=== PATIENT | female | born 1980 | race Caucasian/White ===

== ENCOUNTER 2020-10-07 14:33 | Outpatient (CLI) | payer OTHER | END 2020-10-07 14:34 | disposition home or self-care (01) | LOC: DTY/OP 14:33 | PROVIDERS: ATTEND Surgery | DX: E66.01 Morbid (severe) obesity due to excess calories (principal) | CPT/HCPCS: 97802 ==

== ENCOUNTER 2020-11-04 06:30 | Outpatient (CLI) | payer OTHER ==
--- NOTE | 2020-11-04 17:01 | RAD ---
EXAM: CHEST TWO VIEWS 11/04/2020 4:58 PM HISTORY: Preop evaluation COMPARISON: Prior exam dated November 12, 2019 FINDINGS: Lungs: No acute airspace consolidation. Heart: Normal in size and contour. Pulmonary Vessels: Normal. Costophrenic Angles: Clear. Pneumothorax: None. Osseous Structures: Intact. Additional Findings: None. IMPRESSION: No significant acute intrathoracic disease.
[2020-11-04 18:03] LABS: #Eosinphils 0.2 10x3/uL (0.0-0.5); #Monocytes 0.4 10x3/uL (0.0-1.1); #Neutrophils 4.6 10x3/uL (1.5-8.4); %Basophils 0.2 % (0.0-2.0); %Eosinophils 1.8 % (0.0-6.0); %Lymphocytes 44.6 % (18.0-47.0); %Monocytes 4.5 % (0.0-10.0); %Neutrophils 48.8 % (40.0-75.0); Hemoglobin 12.8 g/dL (12.0-16.0); Mean Corpuscular HGB CONC 33.4 G/DL (32.0-36.0); Mean Corpuscular Hemoglobin 29.2 PG (27.0-33.0); Mean Corpuscular Volume 87.4 fl (80.0-100.0); Mean Platelet Volume 10.2 fl (7.4-10.4); Platelet Count 275 10x3/uL (130-400); RBC Distribution Width 12.4 % (11.5-14.5); Red Blood Cell (RBC) Count 4.38 10x6/uL (3.90-5.20); White Blood Cell (WBC) Count 9.4 10x3/uL (4.5-11.0)
[2020-11-04 18:29] LABS: BHCG - Serum Negative (NEGATIVE); Pregs Control Background? CLEAR/WHITE (CLR/WHITE); Pregs Control Bar Appear? YES (CONTROL BAR)
[2020-11-04 18:36] LABS: ALT (SGPT) 40 U/L (8-55); AST (SGOT) 30 U/L (5-34); Albumin 4.7 g/dL (3.5-5.0); Alkaline Phosphatase 53 U/L (40-110); Anion Gap 16 mmol/L (10-20); BUN (Urea Nitrogen) 17 mg/dL (7.0-18.7); Bilirubin, Total 0.4 mg/dL (0.2-1.2); Calc. Creatinine Clearance 0 mL/min (70-130); Calcium 9.5 mg/dL (7.8-10.44); Carbon Dioxide 29 mmol/L (22-29); Chloride 100 mmol/L (98-107); Globulin 2.7 g/dL (2.4-3.5); Glucose 85 mg/dL (70-105); Potassium 4.4 mmol/L (3.5-5.1); Protein, Total 7.4 g/dL (6.0-8.3); Sodium 141 mmol/L (136-145)
[2020-11-04 21:21] LABS: Hemoglobin A1c 5.6 % (4.0-6.0)
[2020-11-05 03:11] LABS: SARS-CoV-2 MS2 Positive; SARS-CoV-2 N Gene Negative; SARS-CoV-2 S Gene Negative; SARS-CoV-2 by NAA Not Detected (NotDetected); SARS-CoV-2 orf1ab Negative
== END 2020-11-04 06:31 | disposition home or self-care (01) ==
LOC: LABBT 06:30
PROVIDERS: ATTEND Surgery
DX: Z01.818 Encounter for other preprocedural examination (principal); Z20.828 Contact with and (suspected) exposure to other viral communicable diseases; E66.01 Morbid (severe) obesity due to excess calories
CPT/HCPCS: 71046; 80053; 83036; 84703; 85025; 87635; 93005; 93010; U0003

== ENCOUNTER 2020-11-04 10:45 | Inpatient (IN) | payer OTHER ==
[2020-11-09] MEDS ORDERED: Rocuronium Bromide 10 MG/ML (10ML VIAL) ONE (09:51)
[2020-11-09] MEDS ORDERED: Lidocaine 1% PF 5 ML VIAL ONE (09:51)
[2020-11-09] MEDS ORDERED: Ondansetron PF 4 MG/2 ML Vial ONE (09:51)
[2020-11-09] MEDS ORDERED: ePHEDrine 50 MG/ML VIAL ONE (09:51)
[2020-11-09] MEDS ORDERED: Glycopyrrolate 0.2 MG/ML 5 ML SYRINGE ONE (09:51)
[2020-11-09] MEDS ORDERED: PROPOFOL 200 MG/20 ML VIAL ONE (09:51)
[2020-11-09] MEDS ORDERED: Ketorolac Tromethamine 30 MG/ML VIAL ONE (09:51)
[2020-11-09] MEDS ORDERED: Heparin 5,000 UNITS/ML VIAL ONE (10:23)
[2020-11-09] MEDS ORDERED: Bupivacaine PF 0.5% 30 ML VIAL ONE (11:38)
[2020-11-09] MEDS ORDERED: Lidocaine 1% w/Epinephrine 1:100K 20 ML VIAL ONE (11:38)
[2020-11-09] MEDS ORDERED: SUGAMMADEX SODIUM 200 MG/2 ML VIAL ONE (11:47)
[2020-11-09] MEDS ORDERED: Lidocaine 2% Jelly 5 ML TUBE ONE (11:47)
[2020-11-09] MEDS ORDERED: Fentanyl 100 MCG/2 ML VIAL ONE ×2 (11:47→13:14)
[2020-11-09] MEDS ORDERED: Midazolam HCl 2 mg/2 ml Vial ONE (11:47)
[2020-11-09] MEDS ORDERED: SUGAMMADEX SODIUM 500 MG/5 ML VIAL ONE (11:47)
[2020-11-09] MEDS ORDERED: Promethazine HCl 25 MG/ML VIAL SLOW IVP PRN (13:20)
[2020-11-09] MEDS ORDERED: Promethazine HCl 25 MG/ML VIAL IM PRN ×3 (13:20→13:56)
[2020-11-09] MEDS ORDERED: Ondansetron HCl/PF 4 MG/2 ML Vial IVP PRN (13:20)
[2020-11-09] MEDS ORDERED: Promethazine HCl 25 MG/ML VIAL ONE ×2 (13:34→14:04)
[2020-11-09] MEDS ORDERED: Meperidine HCl/PF 25 MG/ML VIAL SLOW IVP SCH (13:45)
[2020-11-09] MEDS ORDERED: diphenhydrAMINE 50 MG/ML VIAL IVP PRN ×2 (13:48→13:56)
[2020-11-09] MEDS ORDERED: Zolpidem Tartrate 5 MG TAB PO PRN (13:48)
[2020-11-09] MEDS ORDERED: Naloxone HCl 0.4 mg/ml Vial IV PRN (13:48)
[2020-11-09] MEDS ORDERED: diphenhydrAMINE 25 MG CAP PO PRN (13:48)
[2020-11-09] MEDS ORDERED: diphenhydrAMINE 50 MG/ML VIAL IM PRN (13:48)
[2020-11-09] MEDS ORDERED: fentaNYL Citrate/PF 2,000 MCG in Sodium Chloride 0.9% 60 ML IV PRN (13:48)
[2020-11-09] MEDS ORDERED: Meperidine HCl/PF 25 MG/ML VIAL ONE (13:52)
[2020-11-09] MEDS ORDERED: Hydrocodone-Acetamin 15 ML UDCUP PO PRN (13:56)
[2020-11-09] MEDS ORDERED: Dextrose 50% Abboject 50 ML SYRINGE SLOW IVP PRN (13:56)
[2020-11-09] MEDS ORDERED: Dextrose 5% in Water 1,000 ML IV PRN (13:56)
[2020-11-09] MEDS ORDERED: Ondansetron PF 4 MG/2 ML Vial IVP PRN (13:56)
[2020-11-09] MEDS ORDERED: hydrALAZINE 20 MG/ML VIAL SLOW IVP PRN (13:56)
[2020-11-09] MEDS ORDERED: HumaLOG 300 UNITS/3 ML VIAL SC PRN (13:56)
--- NOTE | 2020-11-09 13:59 | OP ---
DATE OF PROCEDURE: 11/09/2020 PREOPERATIVE DIAGNOSES: 1. Morbid obesity, body mass index of 36. 2. Diabetes mellitus, type 2. 3. Hypertension. 4. Hyperlipidemia. POSTOPERATIVE DIAGNOSES: 1. Morbid obesity, body mass index of 36. 2. Diabetes mellitus, type 2. 3. Hypertension. 4. Hyperlipidemia. PROCEDURE PERFORMED: Laparoscopic sleeve gastrectomy with Ethicon staple line reinforcements and 38-[place] bougie. ANESTHESIA: General. ESTIMATED BLOOD LOSS: 50 mL. COMPLICATIONS: None. FINDINGS: Normal postoperative EGD. DESCRIPTION OF PROCEDURE: The patient was taken to the operating room and laid supine on the operating room table. After general anesthetic was obtained, the arms and legs were double strapped to bariatric table. The abdomen was prepped and draped in a sterile fashion. Left subcostal 5-mm Optiview trocar placed in usual fashion. High-flow pneumoperitoneum was obtained. Left and right abdominal 12 mm ports as well as a right subcostal 5-mm port were all placed under direct visualization. A 5-mm incision was made at the xiphoid, and Briseyda was used to raise the liver off the GE junction. Short gastrics were taken down from midbody of the stomach to left kerry of diaphragm. Left kerry, posterior fundus, angle of His were completely dissected. Short gastrics were taken down to a distance of 6 cm proximal to the pylorus. A 38 bougie was brought in and its tip left in the antrum of the stomach. Multiple loads of [place] stapling device with Ethicon staple line reinforcements used to form the sleeve. The first was fired up at a distance of 6 cm proximal to the pylorus angled up towards the incisura. Care was taken to avoid being too close to the incisura. Multiple loads were then fired up along the bougie. Stomach was completely transected at the angle of His. Stomach was removed from the left abdominal incision. This fascial defect was closed using GraNee needle and Vicryl tie. A couple of bleeders on the staple line were clipped using laparoscopic clip. The bougie was removed, and an EGD scope was passed through esophagus, stomach to the level of duodenum without obstruction. There was no air leakage or bleeding along the staple line. EGD scope was used to decompress the stomach, it was pulled and removed. All port sites were infiltrated using local anesthetic. Briseyda retractor was removed under direct visualization without bleeding. Pneumoperitoneum was let down. The Vicryl was used to close the fascial defect from the left abdominal incisions. All incisions were irrigated and closed using 4-0 Monocryl and Dermabond. The patient was en route to Recovery in stable condition. All instrument counts, needle counts, and lap counts were correct. Job ID: [id number]
[2020-11-09] MEDS ORDERED: Communication Order-Pharmacy FS SCH (14:00)
[2020-11-09 21:46] VITALS: BMI 36.9
[2020-11-10] MEDS: Ondansetron PF 4 MG/2 ML Vial IVP PRN ×2 (00:18→09:04)
[2020-11-10] MEDS: Sodium Chloride 0.9% 1,000 ML IV SCH ×3 (00:19→09:45)
[2020-11-10 05:05] LABS: #Lymphocytes 3.3 thou/uL (1.20-3.40); #Monocytes 0.5 thou/uL (0.11-0.59); #Neutrophils 7.6 thou/uL (1.40-6.50); %Basophils 0.3 % (0.0-1.0); %Eosinophils 0.3 % (0.0-10.0); %Lymphocytes 28.7 % (21.0-51.0); %Monocytes 4.6 % (0.0-10.0); %Neutrophils 66.1 % (42.0-75.0); Hemoglobin 12.4 g/dL (12.0-16.0); Mean Corpuscular HGB CONC 33.6 g/dL (32.0-36.0); Mean Corpuscular Hemoglobin 29.7 pg (27.0-31.0); Mean Corpuscular Volume 88.6 fL (78.0-98.0); Mean Platelet Volume 7.3 fL (7.4-10.4); Platelet Count 269 thou/uL (130-400); RBC Distribution Width 12.2 % (11.5-14.5); Red Blood Cell (RBC) Count 4.15 mill/uL (4.20-5.40); White Blood Cell (WBC) Count 11.4 thou/uL (4.8-10.8)
[2020-11-10 05:59] LABS: Anion Gap 15 mmol/L (10-20); BUN (Urea Nitrogen) 7 mg/dL (7.0-18.7); Calc. Creatinine Clearance 135 mL/min (70-130); Calcium 8.3 mg/dL (7.8-10.44); Carbon Dioxide 25 mmol/L (22-29); Chloride 102 mmol/L (98-107); Glucose 113 mg/dL (70-105); Potassium 3.7 mmol/L (3.5-5.1); Sodium 138 mmol/L (136-145)
[2020-11-10] MEDS: ALPRAZolam 1 MG TAB PO SCH ×2 (08:23→09:43)
[2020-11-10 08:45] VITALS: BP 179/99; TEMP 98.8
[2020-11-10] MEDS ORDERED: Pantoprazole 40 MG VIAL IVP SCH (09:00)
[2020-11-10] MEDS ORDERED: Escitalopram Oxalate 20 mg Tablet PO SCH (09:00)
[2020-11-10] MEDS ORDERED: Losartan 25 MG TAB PO SCH (09:00)
[2020-11-10] MEDS ORDERED: Enoxaparin Sodium 40 MG/0.4 ML SYRINGE SC SCH (09:00)
--- NOTE | 2020-11-11 15:17 | DIS ---
DATE OF ADMISSION: 11/09/2020 DATE OF DISCHARGE: 11/10/2020 ADMIT DIAGNOSIS: Morbid obesity. DISCHARGE DIAGNOSES: Morbid obesity. PROCEDURE PERFORMED: Laparoscopic sleeve gastrectomy by Dr. Dunham without complication. CONDITION ON DISCHARGE: Improved. STAFF: Dr. Dunham. HOSPITAL COURSE: On postop day 1, the patient was doing well. She was tried on a liquid diet. She is ambulatory. Her pain is controlled. She is discharged home. She will follow up in the office in 2 weeks. Discharge medicines already sent to her pharmacy. Job ID: [id number]
== END 2020-11-10 13:00 | disposition home or self-care (01) | DRG 621 ==
LOC: SURG B 11-09 10:05 → SJJU 11-09 20:17
PROVIDERS: ADMIT Surgery; ATTEND Surgery
PROC: 0DB64Z3 Excision of Stomach, Percutaneous Endoscopic Approach, Vertical (ICD-10-PCS; principal; 2020-11-09)
PROC: 0DJ08ZZ Inspection of Upper Intestinal Tract, Via Natural or Artificial Opening Endoscopic (ICD-10-PCS; 2020-11-09)
DX: E66.01 Morbid (severe) obesity due to excess calories (principal); Z68.36 Body mass index [BMI] 36.0-36.9, adult; E11.9 Type 2 diabetes mellitus without complications; I10 Essential (primary) hypertension; E78.5 Hyperlipidemia, unspecified; Z20.828 Contact with and (suspected) exposure to other viral communicable diseases; Z79.899 Other long term (current) drug therapy
CPT/HCPCS: 36415; 36416; 80048; 85025; 88307; 88312; C9113; J0690; J1644; J1650; J1885; J2175; J2250; J2405; J2550; J2704; J3010; J3490; S0020